=== PATIENT | female | born 1990 | race Caucasian/White ===

== ENCOUNTER 2020-08-06 11:52 | Inpatient (IN) ==
[2020-08-06] MEDS ORDERED: LACTATED RINGER'S 1,000 ML IV PRN (14:26)
[2020-08-06] MEDS ORDERED: OXYTOCIN 30 UNITS/500 ML BAG IV PRN (14:26)
--- NOTE | 2020-08-06 14:29 | Labor Progress Brief Note ---
Date of Service August 06, 2020 Subjective Contractions initially every 5-6 min, spaced to Q8-10, then closer again to Q4- 5m. No LOF, no VB, good FM. Assessment & Plan (1) Normal labor and delivery: Admit, requesting epidural. Physical Exam Physical Exam: initially 3/100/-3 (floating), on recheck 2 hours later 4/100/- 1 (applied). FHT Cat 1 [place] Q4-5 Results & Data ([facility]) Vital Signs (Past 12 Hours) Vital Signs Temp Pulse Resp BP 08/06/20 13:19 71 20 153/82 H 08/06/20 12:07 97.9 F 63 16 128/77 08/06/20 12:02 97.9 F 63 16 128/77 Coding Level of Care Code None Diagnoses Normal labor and delivery O80
[2020-08-06 14:52] LABS: Hematocrit (blood only) 39.9 % (37-47); Hemoglobin 14.2 g/dL (12.0-16.0); Mean Corpuscular Hemoglobin 30.8 pg (25-34); Mean Corpuscular Hgb Conc 35.6 g/dL (32-36); Mean Corpuscular Volume 86.6 fL (80-100); Mean Platelet Volume 10.4 fL (7.4-10.4); Platelet Count 212 K/uL (130-400); RDW Coefficient of Variation 13.2 % (11.5-14.5); RDW Standard Deviation 41.7 fL (36.4-46.3); Red Blood Count 4.61 M/uL (4.2-5.4); White Blood Count 10.36 K/uL (4.8-10.8)
[2020-08-06] MEDS ORDERED: ePHEDrine sulfate 50 MG/ML AMP ONE (15:14)
[2020-08-06] MEDS ORDERED: SODIUM CHLORIDE 0.9% INJ 10 ML VIAL ONE (15:14)
[2020-08-06] MEDS ORDERED: BUPIVACAINE 0.25% 30 ML VIAL ONE (15:14)
[2020-08-06] MEDS ORDERED: fentaNYL citrate 100 MCG/2 ML VIAL ONE (15:14)
[2020-08-06] MEDS ORDERED: fentaNYL 2MCG/ML ROPIVACAINE 1.25MG/ML 100 ML BAG EPI ONE (15:15)
[2020-08-06] MEDS ORDERED: ePHEDrine sulfate 50 MG/ML AMP IV PRN (15:38)
[2020-08-06] MEDS ORDERED: ONDANSETRON INJ 2 MG/ML 2 ML VIAL IV PRN (15:38)
[2020-08-06] MEDS ORDERED: NALOXONE HCL 1 MG in SODIUM CHLORIDE 0.9% 1000ML 1,000 ML IV PRN (15:38)
[2020-08-06] MEDS ORDERED: diphenhydrAMINE 50 MG/ML VIAL IV PRN (15:38)
[2020-08-06] MEDS ORDERED: NALOXONE HCL 0.4 MG/1 ML VIAL/CARP IV PRN (15:38)
[2020-08-06] MEDS ORDERED: fentaNYL 2MCG/ML ROPIVACAINE 1.25MG/ML 100 ML BAG EPI PRN (15:38)
--- NOTE | 2020-08-06 15:41 | Anesthesiology Consultation ---
Date of Service August 06, 2020 Assessment & Plan (1) Encounter for pre-operative examination: Chart Review Chart Review: Acceptable Risk for Labor Epidural Consults Requested none ASA ASA2 Proposed Anesthesia Anesthesia Type: Labor Epidural Risk / Benefits Reviewed With: PT / POA / Parent / Guardian, Accepts Plan and Informed Consent Obtained History Height/Weight Height: 5 ft 2 in Weight: 65.771 kg Allergies Allergy/AdvReac Type Severity Reaction Status Date / Time No Known Allergies Verified 08/03/20 12:00 Medications Home Medications Medication Instructions Recorded Confirmed Last Taken prenat.vits,eder,hjn-fmay-xuisp 1 tab PO DAILY 12/25/19 08/06/20 08/05/20 09:00 Active Medications Generic Name Dose Route Start Last Admin Trade Name Freq PRN Reason Stop Dose Admin Lactated Ringer's 1,000 mls @ 125 mls/hr 08/06/20 14:26 08/06/20 15:23 Lr IV 08/08/20 14:25 125 mls/hr .Q8H PRN Infusion L&D Protocol Protocol Past Medical History Medical History (Updated 08/06/20 @ 15:41 by Main Vazquez DO) Varicella Exercise / Class Metabolic Activity II 4-5 Yardwork/Stairs/Walk up hill Past Family History Family History Denies family history of Ovarian cancer Breast cancer Colorectal cancer Past Surgical History Surgical History H/O wisdom tooth extraction S/P nasal surgery Past Anesthesia History No Hx of Anesthesia Complications and No Family Hx of Anesthesia Complications History of PONV No Hx of PONV and No Hx of Motion Sickness Social History Smoking Status: Never smoker Do You Dip or Chew Tobacco: No Hx Alcohol Use: No Hx Substance Use: No Physical Exam Vital Signs Last Vital Signs Temp 97.9 F 08/06/20 12:07 Pulse 63 08/06/20 14:58 Resp 20 08/06/20 13:19 BP 140/68 08/06/20 14:58 ENMT Mouth: no dentition abnormality Thyromental Distance: > or= 3.5 Finger Breadths Mallampati Class: II Neck normal visual inspection Respiratory normal respiratory effort Auscultation: lungs clear to auscultation bilaterally Cardiovascular Rate/Rhythm: regular rate and regular rhythm Testing Laboratory Results 08/06/20 14:42
--- NOTE | 2020-08-06 17:20 | Delivery Summary ---
Vaginal Delivery Summary Date of Service August 06, 2020 Vaginal Delivery Summary DIAGNOSES: 1. Langford intrauterine at 38w6d gestation. 2. Spontaneous onset of labor. 3. Group B Streptococcus Neg. PROCEDURE: Spontaneous vaginal delivery without laceration. SURGEON: Jasmina Esteban MD. MULTIMEDIA EDITOR: None. ESTIMATED BLOOD LOSS: 250 mL. COMPLICATIONS: None. PLACENTA: Spontaneous and intact with a 3-vessel cord. DISPOSITION: Stable to labor and delivery. DESCRIPTION: The patient pushed well and brought the head to in ILSA position. The 's head was allowed to deliver with contraction force and no further active pushing, with the perineum protected during this time. The shoulders delivered easily with a maternal pushing effort. There was no nuchal cord. The left shoulder was anterior. The shoulders and body delivered without any difficulty, and the infant was placed on the maternal abdomen. It was vigorous and moving all extremities, and making respiratory efforts. The cord was doubly clamped by the MD and then cut by the FOB. The placenta delivered spontaneously and was noted to be intact and with a 3VC. The cervix, vagina and perineum were examined and were found to be without defect requiring repair. The fundus was firm and lochia minimal immediately after delivery. [facility] Vaginal Delivery Charge Vaginal Delivery Codes: 95550 global code for the antepartum, delivery, and post-
--- NOTE | 2020-08-06 19:08 | Anesthesia Procedure Note ---
Date of Service August 06, 2020 Anesthesia Post Epidural Note Vital Signs Vital Signs: Temp Pulse Resp BP Pulse Ox 97.7 F 64 16 135/72 99 08/06/20 16:50 08/06/20 19:06 08/06/20 18:20 08/06/20 19:06 08/06/20 16:51 Pain Intensity Medial Abdomen: Pain Intensity: 0 Notes Mental Status: alert / awake / arousable and participated in evaluation Nausea / Vomiting: adequately controlled Pain: adequately controlled Airway Patency, RR, SpO2: stable & adequate BP & HR: stable & adequate Hydration State: stable & adequate Neuraxial Anesthesia: was administered and sensory block is resolving Anesthetic Complications: no major complications apparent and Pt Satisfied with anesthetic care Epidural: Removed without complications and With tip intact
[2020-08-06] MEDS ORDERED: DIPHTHERIA/TETANUS/PERTUSSIS 0.5 ML SYR/VIAL IM ONE (22:00)
[2020-08-06] MEDS ORDERED: oxyCODONE/ACETAMINOPHEN 5mg/325mg TAB PO PRN (22:00)
[2020-08-06] MEDS ORDERED: SUPERCREAM 0.870% 15 GM JAR EXT PRN (22:00)
[2020-08-06] MEDS ORDERED: ACETAMINOPHEN 325 MG TAB PO PRN (22:00)
[2020-08-06] MEDS ORDERED: HYDROCORTISONE ACETATE 25 MG SUPP PR PRN (22:00)
[2020-08-06] MEDS ORDERED: BENZOCAINE 20% AER SPR 82.5 GM CAN EXT PRN (22:00)
[2020-08-06] MEDS ORDERED: DOCUSATE SODIUM 100 MG CAP PO ONE (22:12)
[2020-08-06] MEDS: IBUPROFEN 600 MG TAB PO PRN (22:13)
[2020-08-07 06:22] LABS: Hematocrit (blood only) 35.1 % (37-47); Hemoglobin 12.2 g/dL (12.0-16.0); Mean Corpuscular Hemoglobin 30.1 pg (25-34); Mean Corpuscular Hgb Conc 34.8 g/dL (32-36); Mean Corpuscular Volume 86.7 fL (80-100); Mean Platelet Volume 10.2 fL (7.4-10.4); Platelet Count 194 K/uL (130-400); RDW Coefficient of Variation 13.3 % (11.5-14.5); RDW Standard Deviation 42.3 fL (36.4-46.3); Red Blood Count 4.05 M/uL (4.2-5.4); White Blood Count 10.53 K/uL (4.8-10.8)
--- NOTE | 2020-08-07 08:08 | Obstetrical Progress Note ---
Date of Service August 07, 2020 Assessment & Plan (1) state: Doing well this morning. successfully, pain well managed, no areas of concern. Subjective Ambulation: ambulating normally Voiding: no voiding problems Passing Gas:: Yes Diet Tolerance:: regular diet Lochia:: Small Feeding Type:: breast feeding Physical Exam Constitutional WD/WN, vitals as above Eyes PERRL, conjunctivae normal, anicteric sclerae Neck normal visual inspection Respiratory normal respiratory effort and able to speak in complete sentences; no respiratory distress and no labored breathing Cardiovascular Rate/Rhythm: regular rate and regular rhythm Extremities: no edema Chest (Breasts) Chest: normal inspection of chest Gastrointestinal (Abdomen) Inspection/Auscultation: abdomen normal to inspection Soft, postgravid Psychiatric A+Ox3, euthymic affect Genitourinary OB Exam Abdomen: + fundal height Fundus: + firm and + relation to umbilicus (fundus just below umbilicus); not tender Results & Data ([facility]) Vital Signs (Past 12 Hours) Vital Signs Temp Pulse Resp BP Pulse Ox 08/07/20 03:05 98.1 F 69 18 113/77 97 08/06/20 23:30 98.6 F 69 18 112/69 97 08/06/20 21:15 98.1 F 78 18 133/82 98
[2020-08-07] MEDS: IBUPROFEN 600 MG TAB PO PRN ×2 (08:16→16:20)
[2020-08-07] MEDS: DOCUSATE SODIUM 100 MG CAP PO SCH ×2 (08:16→20:19)
[2020-08-07] MEDS: PRENATAL VITAMIN 1 TAB PO SCH (08:16)
--- NOTE | 2020-08-08 05:06 | Obstetrical Progress Note ---
Date of Service <Jim Lee MD - Last Filed: 08/08/20 07:31> August 08, 2020 Assessment & Plan <Jim Lee MD - Last Filed: 08/08/20 07:31> (1) Normal labor and delivery: - PNL: Rh pos, RI, GBS neg, COVID neg - Feels well today. Eating well, voiding well, ambulating well - Pain well controlled with ibuprofen 600mg Q4H PRN - Routine care -- OOB, ambulation, diet progression as tolerated - After discharge will have 6 week follow-up with Dr. Esteban Subjective <Jim Lee MD - Last Filed: 08/08/20 07:31> [place] is a 30 y/o female who is PPD #2 following at 39 weeks. She reports feeling well overall this morning. Some abdominal cramping and 1/10 pain well managed on analgesics. Voiding well. Tolerating meals overnight without difficulty. Patient has been able to ambulate some. Is passing gas, no bowel movement yet. Has persistent lochia with some improvement this morning. Currently . Review of Systems Denies fever or chills. Denies shortness of breath or cough. Denies chest pain. Denies breast pain. Denies dysuria. Denies leg pain or leg swelling. Denies headache or changes in vision. Physical Exam <Jim Lee MD - Last Filed: 08/08/20 07:31> General: Alert, oriented. No acute distress. Cardiac: Regular rate and rhythm. No murmurs. Respiratory: Clear to auscultation bilaterally a/p, no wheezes/rales/rhonchi. No increased work of breathing. Symmetrical chest rise. No respiratory distress. Abdomen: Soft, nontender, nondistended. Bowel sounds present. Uterus: Uterine fundus firm, palpable ~2 cm below umbilicus. Lower Extremities: No lower extremity edema or swelling. No deep calf pain. Janes's negative bilaterally. Results & Data ([facility]) <Jim Lee MD - Last Filed: 08/08/20 07:31> Vital Signs (Past 12 Hours) Vital Signs Temp Pulse Resp BP Pulse Ox 08/07/20 23:20 36.7 C 58 L 18 123/79 97 08/07/20 20:45 36.4 C L 75 18 127/82 97 <Jasmina Esteban MD - Last Filed: 08/08/20 07:57> Co-Signing Physician Notes Resident Physician Supervision Note: I interviewed and examined the patient. Discussed with Dr. Haley and agree with findings and plan as documented in the note. Any exceptions or clarifications are listed here: Documented By: Jasmina Esteban MD, FACOG Resident Activity Tracking <Jim Lee MD - Last Filed: 08/08/20 07:31> Resident Involvement: Resident Care Provided Care Provided: OB Delivery
[2020-08-08 07:48] LABS: Hematocrit (blood only) 37.5 % (37-47); Hemoglobin 13.1 g/dL (12.0-16.0)
[2020-08-08] MEDS: DOCUSATE SODIUM 100 MG CAP PO SCH (08:55)
[2020-08-08] MEDS: PRENATAL VITAMIN 1 TAB PO SCH (08:55)
== END 2020-08-08 12:55 | disposition home or self-care (01) | DRG 807 ==
LOC: 4S1 11:52 → OPB 11:52 → 4S1 14:26 → 4S2 20:00